=== PATIENT | female | born 1975 | race Two or more races ===

== ENCOUNTER → 2024-12-18 | Outpatient (CLI) | payer MEDICAID, SELFPAY ==
--- NOTE | 2024-12-18 12:23 | XR_ITS ---
Examination: Lumbar spine, 5 views Technique: Lumbar spine AP, lateral, coned lateral lower lumbar spine, bilateral obliques 5 views Exam date and time: December 18, 2024 1245 hrs. Indications: Low back pain beginning one week ago. Findings: Moderate osteopenia No lumbar fracture Mild diffuse lumbar disc narrowing Mild lumbar spondylosis No spondylolisthesis Impression: Mild diffuse lumbar degenerative disc disease
== END | disposition home or self-care (01) ==
PROVIDERS: PCP Physician Assistant; Referring Provider Physician Assistant; Visit Provider Physician Assistant
DX: M51.369 Other intervertebral disc degeneration, lumbar region without mention of lumbar back pain or lower extremity pain (principal)
CPT/HCPCS: 72110